=== PATIENT | male | born 1955 | race Caucasian/White ===

== ENCOUNTER 2022-04-22 11:30 | Outpatient (CLI) | payer MEDICARE, SELFPAY ==
[2022-04-22 22:33] LABS: Chloride* 103 mmol/L (96-114); Sodium* 135 mmol/L (135-149)
[2022-04-22 22:34] LABS: Albumin* 4.6 g/dL (3.3-5.0); Potassium* 4.8 mmol/L (3.6-5.1)
[2022-04-22 22:36] LABS: Carbon Dioxide* 25 mmol/L (20-32); Cholesterol* 209 mg/dL (90-199); Creatinine* 0.7 mg/dL (0.5-1.5); Estimated Glomerular Filt Rate 100 ml/min; Total Protein* 7.9 g/dL (6.0-8.3)
[2022-04-22 22:37] LABS: Alanine Aminotransferase* 20 U/L (4-50); Alkaline Phosphatase* 68 U/L (40-150); Aspartate Amino Transferase* 23 U/L (12-35); Bilirubin Total* 0.9 mg/dL (0.1-1.5); Blood Urea Nitrogen* 14 mg/dL (7-30); Calcium* 9.3 mg/dL (8.4-10.6); Glucose* 103 mg/dL (60-115); HDL Cholesterol* 103 mg/dL (>=40); LDL Cholesterol Calculated 91 mg/dL (<100); Triglycerides* 74 mg/dL (40-149)
[2022-04-22 22:39] LABS: TSH With Reflex to FT4* 0.492 uIU/mL (0.270-4.200)
[2022-04-22 22:57] LABS: Hepatitis C Virus Antibody* Negative (Negative)
[2022-04-22 23:07] LABS: PSA Screen* 0.37 ng/mL (0.10-4.00)
== END 2022-04-22 11:31 | disposition home or self-care (01) ==
PROVIDERS: PCP Family Medicine; Visit Provider Family Medicine
DX: Z00.00 Encounter for general adult medical examination without abnormal findings (principal); E78.5 Hyperlipidemia, unspecified; I10 Essential (primary) hypertension; E03.9 Hypothyroidism, unspecified; D69.6 Thrombocytopenia, unspecified; D72.829 Elevated white blood cell count, unspecified; Z12.5 Encounter for screening for malignant neoplasm of prostate; Z11.59 Encounter for screening for other viral diseases
CPT/HCPCS: 80053; 80061; 84153; 84443; 86803

== ENCOUNTER 2022-06-17 14:07 | Outpatient (CLI) | payer MEDICARE, SELFPAY | END 2022-06-17 14:08 | disposition home or self-care (01) | LOC: FRMREF 14:07 | PROVIDERS: PCP Family Medicine; Visit Provider Family Medicine | DX: E03.9 Hypothyroidism, unspecified (principal); E78.5 Hyperlipidemia, unspecified; I10 Essential (primary) hypertension; D72.829 Elevated white blood cell count, unspecified; D69.6 Thrombocytopenia, unspecified | CPT/HCPCS: 84443 ==

== ENCOUNTER 2022-07-22 10:14 | Outpatient (CLI) | payer MEDICARE, SELFPAY | END 2022-07-22 10:15 | disposition home or self-care (01) | LOC: OP CLINIC 10:15 | PROVIDERS: PCP Family Medicine; Visit Provider Surgery | DX: Z12.11 Encounter for screening for malignant neoplasm of colon (principal); K63.5 Polyp of colon; Z86.010 Personal history of colon polyps | CPT/HCPCS: 45380; 45385; 88305; 99153; J1200; J2250; J3010 ==

== ENCOUNTER 2023-05-19 07:06 | Outpatient (CLI) | payer MEDICARE, SELFPAY | END 2023-05-19 07:07 | disposition home or self-care (01) | PROVIDERS: PCP Family Medicine; Visit Provider Family Medicine | DX: E03.9 Hypothyroidism, unspecified (principal); E78.5 Hyperlipidemia, unspecified; I10 Essential (primary) hypertension | CPT/HCPCS: 80053; 80061; 82043; 82570; 84443; 85027; G0103 ==

== ENCOUNTER 2024-08-06 10:20 | Outpatient (CLI) | payer MEDICARE, SELFPAY | END 2024-08-06 10:21 | disposition home or self-care (01) | PROVIDERS: PCP Family Medicine; Visit Provider Family Medicine | DX: Z00.01 Encounter for general adult medical examination with abnormal findings (principal); E03.9 Hypothyroidism, unspecified; E78.5 Hyperlipidemia, unspecified; I10 Essential (primary) hypertension; Z12.5 Encounter for screening for malignant neoplasm of prostate | CPT/HCPCS: 80053; 80061; 82043; 82570; 84439; 84443; G0103 ==